=== PATIENT | female | born 1995 | race Hispanic/Latino ===

== ENCOUNTER 2017-09-20 15:49 | Observation (INO) | payer OTHER ==
[2017-09-20 16:06] VITALS: BMI 44.6
--- NOTE | 2017-09-20 16:11 | ED PDOC ---
Arrival/HPI <Ashley Toledo - Last Filed: 09/20/17 22:52> - General Historian: Patient <Ozzie Bui - Last Filed: 09/22/17 16:10> - General Chief Complaint: GI Problem Time Seen by Provider: 09/20/17 15:55 - History of Present Illness Narrative History of Present Illness (Text): 09/20/17 16:02 22 y/o female, no significant pmh, nkda, c/o nausea/vomiting/diarrhea and lower abdominal pain started this morning. Pt. stated that she went to sleep last night with epigastric pain which the pain radiating to periumbilical this morning, associated with couple episodes of non-bloody/nonbilious vomiting with the couple episodes of non-bloody diarrhea, no recent traveling, no recent antibiotic use, no rash, no dizziness, no numbness or tingling, no other medical or psychological complaints. (Ozzie Bui) Past Medical History - Provider Review Nursing Documentation Reviewed: Yes - Infectious Disease Hx of Infectious Diseases: None - Psychiatric Hx Anxiety: Yes Hx Substance Use: No - Surgical History Hx Tonsillectomy: Yes (& adenoids) - Anesthesia Hx Anesthesia: Yes Hx Anesthesia Reactions: No Hx Malignant Hyperthermia: No <Ozzie Bui - Last Filed: 09/22/17 16:10> Family/Social History - Physician Review Nursing Documentation Reviewed: Yes Family/Social History: Unknown Family HX Smoking Status: Never Smoked Hx Alcohol Use: No Hx Substance Use: No <Ozzie Bui - Last Filed: 09/22/17 16:10> Allergies/Home Meds <Ashley Toledo - Last Filed: 09/20/17 22:52> <Ozzie Bui - Last Filed: 09/22/17 16:10> Allergies/Adverse Reactions: Allergies No Known Allergies Allergy (Verified 09/20/17 15:53) Home Medications: Home Meds Medication Instructions Recorded Confirmed Norgestrel-Ethinyl Estradiol 1 tab PO DAILY 09/20/17 09/20/17 [Cryselle-28 Tablet] Review of Systems - Review of Systems Constitutional: Fatigue. absent: Fevers Eyes: absent: Vision Changes ENT: absent: Hearing Changes Respiratory: absent: SOB, Cough Cardiovascular: absent: Chest Pain Gastrointestinal: Abdominal Pain, Diarrhea, Nausea, Vomiting Musculoskeletal: absent: Arthralgias, Back Pain Skin: absent: Rash, Pruritis Neurological: absent: Headache Psychiatric: absent: Anxiety, Depression, Suicidal Ideation <Ozzie Bui Q - Last Filed: 09/22/17 16:10> Physical Exam Vital Signs Reviewed: Yes Temperature: Afebrile Blood Pressure: Normal Pulse: Tachycardic Respiratory Rate: Normal Appearance: Positive for: Well-Appearing, Non-Toxic, Comfortable Pain Distress: Mild Mental Status: Positive for: Alert and Oriented X 3 - Systems Exam Head: Present: Atraumatic, Normocephalic Pupils: Present: PERRL Extroacular Muscles: Present: EOMI Conjunctiva: Present: Normal Mouth: Present: Moist Mucous Membranes Neck: Present: Normal Range of Motion Respiratory/Chest: Present: Clear to Auscultation, Good Air Exchange. No: Respiratory Distress, Accessory Muscle Use Cardiovascular: Present: Regular Rate and Rhythm, Normal S1, S2. No: Murmurs Abdomen: Present: Tenderness (+periumbilical tenderness, negative calixto, negative mcburney), Normal Bowel Sounds. No: Distention, Peritoneal Signs, Rebound, Guarding Back: Present: Normal Inspection Upper Extremity: Present: Normal Inspection. No: Cyanosis, Edema Lower Extremity: Present: Normal Inspection. No: Edema Neurological: Present: GCS=15, Speech Normal, Motor Func Grossly Intact, Gait Normal, Memory Normal Skin: Present: Warm, Dry, Normal Color. No: Rashes Psychiatric: Present: Alert, Oriented x 3, Normal Insight, Normal Concentration <Ozzie Bui Q - Last Filed: 09/22/17 16:10> Vital Signs Temp Pulse Resp BP Pulse Ox 09/21/17 00:05 99.2 F 98 H 17 108/58 L 99 09/20/17 23:35 99.2 F 98 H 17 108/58 L 99 09/20/17 22:34 99.8 F H 120 H 112/73 09/20/17 22:19 99.8 F H 115 H 17 112/73 100 09/20/17 20:15 140 H 115/82 09/20/17 18:45 97.5 F L 129 H 18 118/82 100 09/20/17 18:03 113 H 18 135/70 96 09/20/17 15:55 98.9 F 125 H 18 143/81 97 Medical Decision Making Re-evaluation Time: 22:49 Reassessment Condition: Re-examined, Improving,but remains with symptoms - Lab Interpretations I have reviewed the lab results: Yes Interpretation: No clinic. lab abnormalty <Ashley Toledo P - Last Filed: 09/20/17 22:52> - RAD Interpretation Clinical Rn: Radiologist - EKG Interpretation Interpreted by ED Physician: Yes Type: 12 lead EKG Comparison: No previous EKG avail. <Ozzie Bui Q - Last Filed: 09/22/17 16:10> ED Course and Treatment: 09/20/17 22:[address] Salgado regarding patient symptoms. I reviewed lab results, CT scan result, V/Q scan result, VS. I told Dr. Salgado that Dr. Thompson has sen pt. Patient mother request her to be admitting physician. Negative CT and V/Q scan. Dr. Salgado agreed with plan for observation, Telemetry (Ashley Toledo P) 09/20/17 16:15 -labs/ua/rapid flu -ct abdomen and pelvis -IVF/pepcid/reglan -observe and reassess -Discharge home with pepcid, zofran, BRAT diet stay hydrated, avoid dairy product for 2-3 days until symptoms improved, return to the ER for any new or worsening signs or symptoms. 09/20/17 18:36 -Urine hcg is negative -Labs show no acute findings -UA show no UTI -Rapid flu show negative. -CT abdomen and pelvis show: Unremarkable contrast enhanced CT of the abdomen and pelvis. No definite suspicious bowel findings, lack of oral contrast limits evaluation of the small bowel more so than large bowel. -Pt.'s symptoms resolved, feeling completely relief, clinical suspicious for influenza is low. -Pt. remains tachycardia, on control, WELLS criteria for PE is 4.5, received IV contrast previously, will proceed with V/Q scan -EKG ordered as well. 09/20/17 18:54 -EKG: Sinus Tachycardia @ 125 BPM, no ST elevation or depression, T wave inversion on lead III and aVF, no previous ekg available for comparison. -VBG shock panel/thyroid panel and cardiac enzyme ordered. 09/20/17 19:08 -Pt. and patient family request DR. Moreno to be consulted, came to the ER and evaluated the patient, orthostatic performed by Dr. Fuller and there is no tilt or orthostatic hypotension. Dr. Fuller evaluated the patient. -As per Dr. Fuller, pt. is clear from cardiac stand point with no further troponin indicated, agreed to rule out PE cause vs. dehydration vs. thyroid. -Propranolol and echocardiogram ordered by Dr. Fuller. 09/20/17 20:29 -Thyroid profile: normal TSH and normal T4 -Troponin is negative -CK is negative -Drug screen is negative -V/Q scan is pending -VBG is pending -Chest xray show no active pulmonary disease -Cause of this tachycardia and not respond to the IVF with afebrile are not clear, will need further evaluation if all ER test is negative and likely need tele admit -Case endorsed to the incoming PA Ashley Toledo for further observation and dispo, discussed labs/radiology results. (Ozzie Bui) - Lab Interpretations Lab Results: 09/20/17 16:44 09/20/17 16:44 Lab Results 09/20/17 22:15: pO2 36, VBG pH 7.38, VBG pCO2 47.0, VBG HCO3 27.8, VBG Total CO2 29.2 H, VBG O2 Sat (Calc) 77.6 H, VBG Base Excess 2.0, VBG Potassium 4.3, Glucose 101, Lactate 1.6, FiO2 21.0, Sodium 135.0, Chloride 102.0, Venous Blood Potassium 4.3 09/20/17 18:57: POC Glucose (mg/dL) 75 09/20/17 17:50: Urine Opiates Screen Negative, Urine Methadone Screen Negative, Ur Barbiturates Screen Negative, Ur Phencyclidine Scrn Negative, Ur Amphetamines Screen Negative, U Benzodiazepines Scrn Negative, U Oth Cocaine Metabols Negative, U Cannabinoids Screen Negative 09/20/17 16:44: Free T4 0.91, TSH 3rd Generation 0.62 09/20/17 16:44: Lactate Dehydrogenase 390, Total Creatine Kinase 70, Troponin I < 0.01 09/20/17 16:44: D-Dimer, Quantitative 290 H 09/20/17 16:44: WBC 7.9, RBC 4.88, Hgb 15.5, Hct 44.6, MCV 91.4, MCH 31.8, MCHC 34.8, RDW 12.3, Plt Count 216, MPV 10.0, Gran % 90.6 H, Lymph % (Auto) 3.9 L, [place] % (Auto) 5.3, Eos % (Auto) 0.1 L, Baso % (Auto) 0.1, Gran # 7.15 H, Lymph # (Auto) 0.3 L, [place] # (Auto) 0.4, Eos # (Auto) 0.0, Baso # (Auto) 0.01, Neutrophils % (Manual) 92 H, Band Neutrophils % 3 H, Lymphocytes % (Manual) 2 L , Atypical Lymphs % 2 H, Monocytes % (Manual) 1, Platelet Evaluation Normal 09/20/17 16:44: Sodium 138, Potassium 4.2, Chloride 102, Carbon Dioxide 24, Anion Gap 17, BUN 12, Creatinine 0.7, Est GFR ( Amer) > 60, Est GFR (Non- Af Amer) > 60, Random Glucose 101, Calcium 10.0, Magnesium 1.8, Total Bilirubin 0.8, AST 18, ALT 31, Alkaline Phosphatase 53, Total Protein 7.4, Albumin 4.4, Globulin 3.0, Albumin/Globulin Ratio 1.5 09/20/17 16:33: Influenza Typ A,B (EIA) Negative for flu a/b 09/20/17 16:12: Urine Color Yellow, Urine Appearance Sl cloudy, Urine pH 7.0, Ur Specific [place] 1.025, Urine Protein Negative, Urine Glucose (UA) Negative, Urine Ketones Trace H, Urine Blood Moderate H, Urine Nitrate Negative, Urine Bilirubin Negative, Urine Urobilinogen 0.2, Ur Leukocyte Esterase Negative, Urine RBC 5 - 10, Urine WBC 2 - 5, Ur Epithelial Cells Many, Urine Bacteria Many - RAD Interpretation Narrative RAD Interpretations (Text): 09/20/17 22:17 EXAM: NM Lung Perfusion and Ventilation Scan CLINICAL HISTORY: 22 years old, female; Signs and symptoms; Other: Tachycardia; Additional info: Tachycardia, R/O pe TECHNIQUE: Nuclear Medicine ventilation and perfusion images of the lungs were obtained in multiple projections following radiopharmaceutical inhalation/injection. COMPARISON: No relevant prior studies available. FINDINGS: Ventilation: Heterogeneous with clumpy accumulation of tracer in the proximal airways likely artifactual or related to technique. Perfusion: Homogeneous perfusion without segmental defects. IMPRESSION: No findings to suggest pulmonary embolism. 09/20/17 22:52 Chest X-rays: NAD (Kay Toledopeter P) Radiology Orders: 09/20/17 16:12 ABD & PELVIS IV CONTRAST ONLY [CT] Stat 09/20/17 18:31 LUNG PERF & VENT SCAN [NM] Stat 09/20/17 18:52 CHEST TWO VIEWS (PA/LAT) [RAD] Stat LOWER THORAX: Unremarkable. LIVER: Unremarkable. No gross lesion or ductal dilatation. GALLBLADDER AND BILE DUCTS: Unremarkable. PANCREAS: Unremarkable. No gross lesion or ductal dilatation. SPLEEN: Unremarkable. ADRENALS: Unremarkable. No mass. KIDNEYS AND URETERS: Unremarkable. No hydronephrosis. No solid mass. VASCULATURE: Unremarkable. No aortic aneurysm. BOWEL: Unremarkable. No obstruction. No gross mural thickening. APPENDIX: Normal appendix. PERITONEUM: Unremarkable. No free fluid. No free air. LYMPH NODES: Unremarkable. No enlarged lymph nodes. BLADDER: Unremarkable. REPRODUCTIVE: Unremarkable. BONES: No acute fracture. OTHER FINDINGS: None. IMPRESSION: Unremarkable contrast enhanced CT of the abdomen and pelvis. No definite suspicious bowel findings, lack of oral contrast limits evaluation of the small bowel more so than large bowel. (Ozzie Bui) - EKG Interpretation EKG Interpretation (Text): 09/20/17 18:54 -EKG: Sinus Tachycardia @ 125 BPM, no ST elevation or depression, T wave inversion on lead III and aVF, no previous ekg available for comparison. (Ozzie Bui) - Medication Orders Current Medication Orders: Discontinued Medications Acetaminophen (Tylenol 325mg Tab) 975 mg PO STAT STA Stop: 09/20/17 22:19 Last Admin: 09/20/17 22:34 Dose: 975 mg MAR Pain/Vitals Document 09/20/17 22:34 IT (Rec: 09/20/17 22:34 IT [id number]) Vitals Temperature (97.6 F-99.6 F) 99.8 F Temperature Source Oral Acetaminophen (Tylenol 325mg Tab) 650 mg PO Q6H PRN PRN Reason: Fever >100.4 F Last Admin: 09/21/17 04:38 Dose: 650 mg MAR Pain/Vitals Document 09/21/17 04:38 STM (Rec: 09/21/17 04:39 STM [facility] [id number]) Vitals Temperature (97.6 F-99.6 F) 101.7 F Temperature Source Oral Re-Assess: MAR Pain/Vitals Document 09/21/17 05:38 STM (Rec: 09/21/17 06:56 STM [id number]) Vitals Temperature (97.6 F-99.6 F) 98.9 F Temperature Source Oral Famotidine (Pepcid) 20 mg IVP STAT STA Stop: 09/20/17 16:13 Last Admin: 09/20/17 16:59 Dose: 20 mg IVP Administration Document 09/20/17 16:59 OCS (Rec: 09/20/17 17:00 OCS [id number]) Charges for Administration # of IVP Administrations 1 Sodium Chloride (Sodium Chloride 0.9%) 1,000 mls @ 999 mls/hr IV .Q1H1M STA Stop: 09/20/17 17:12 Last Admin: 09/20/17 17:00 Dose: 999 mls/hr eMAR Start Stop Document 09/20/17 17:00 OCS (Rec: 09/20/17 17:00 OCS [id number]) Intravenous Solution Start Date 09/20/17 Start Time 17:00 End Date 09/20/17 End time 18:01 Total Infusion Time 61 Sodium Chloride (Sodium Chloride 0.9%) 1,000 mls @ 250 mls/hr IV .Q4H JOAN Last Admin: 09/20/17 19:30 Dose: 250 mls/hr eMAR Start Stop Document 09/20/17 19:30 IT (Rec: 09/20/17 22:34 IT [id number]) Intravenous Solution Start Date 09/20/17 Start Time 19:30 Sodium Chloride (Sodium Chloride 0.9%) 1,000 mls @ 500 mls/hr IV .Q2H JOAN Last Admin: 09/20/17 18:50 Dose: 500 mls/hr eMAR Start Stop Document 09/20/17 18:50 OCS (Rec: 09/20/17 18:50 OCS [id number]) Intravenous Solution Start Date 09/20/17 Start Time 18:50 End Date 09/20/17 End time 20:50 Total Infusion Time 120 Sodium Chloride (Sodium Chloride 0.9%) 1,000 mls @ 100 mls/hr IV .Q10H JOAN Last Admin: 09/21/17 13:18 Dose: Metoclopramide HCl (Reglan) 10 mg IVP STAT STA Stop: 09/20/17 16:13 Last Admin: 09/20/17 17:00 Dose: 10 mg IVP Administration Document 09/20/17 17:00 OCS (Rec: 09/20/17 17:00 OCS [id number]) Charges for Administration # of IVP Administrations 1 Ondansetron HCl (Zofran Inj) 4 mg IVP Q6H PRN PRN Reason: Nausea/Vomiting Last Admin: 09/21/17 04:39 Dose: 4 mg IVP Administration Document 09/21/17 04:39 STM (Rec: 09/21/17 04:39 STM [id number]) Charges for Administration # of IVP Administrations 1 Propranolol HCl (Inderal) 10 mg PO STAT STA Stop: 09/20/17 19:13 Last Admin: 09/20/17 20:15 Dose: 10 mg MAR Pulse and Blood Pressure Document 09/20/17 20:15 IT (Rec: 09/20/17 20:15 IT [id number]) Pulse Pulse Rate (60-90) 140 Blood Pressure Blood Pressure (100/60-150/90) 115/82 Propranolol HCl (Inderal) 10 mg PO TID JOAN Last Admin: 09/21/17 13:13 Dose: 10 mg MAR Pulse and Blood Pressure Document 09/21/17 13:13 KL (Rec: 09/21/17 13:14 KL [id number]) Pulse Pulse Rate (60-90) 73 Blood Pressure Blood Pressure (100/60-150/90) 102/56 Propranolol HCl (Inderal) 10 mg PO STAT STA Stop: 09/20/17 22:26 Last Admin: 09/20/17 22:34 Dose: 10 mg MAR Pulse and Blood Pressure Document 09/20/17 22:34 IT (Rec: 09/20/17 22:34 IT [id number]) Pulse Pulse Rate (60-90) 120 Blood Pressure Blood Pressure (100/60-150/90) 112/73 - PA / [employer] / Resident Statement MD/DO has reviewed & agrees with the documentation as recorded. <Ozzie Bui Q - Last Filed: 09/22/17 16:10> Disposition/Present on Arrival - Disposition Patient Plan: Admission <Ashley Toledo P - Last Filed: 09/20/17 22:52> - Present on Arrival Any Indicators Present on Arrival: No History of DVT/PE: No History of Uncontrolled Diabetes: No Urinary Catheter: No History of Decub. Ulcer: No History Surgical Site Infection Following: None - Disposition Have Diagnosis and Disposition been Completed?: Yes Disposition Time: 20:31 Patient Plan: Admission <Ozzie Bui - Last Filed: 09/22/17 16:10> - Disposition Diagnosis: Gastroenteritis, Tachyarrhythmia, Abnormal EKG Disposition: HOSPITALIZED Condition: STABLE
[2017-09-20] MEDS ORDERED: Sodium Chloride 0.9% 1,000 ML IV STA (16:12)
[2017-09-20] MEDS ORDERED: Sodium Chloride 0.9% 1,000 ML IV SCH ×2 (17:00→18:15)
[2017-09-20 17:05] LABS: BASO # 0.01 K/mm3 (0.0-2.0); BASO % 0.1 % (0.0-3.0); EOS % 0.1 % (1.5-5.0); GRAN # 7.15 (1.4-6.5); GRAN % 90.6 % (50.0-68.0); HEMOGLOBIN 15.5 g/dL (12.0-16.0); LYMPH # 0.3 (1.2-3.4); LYMPH % 3.9 % (22.0-35.0); MEAN CELL VOLUME 91.4 fl (80.0-105.0); MEAN CORPUSCULAR HEMOGLOBIN 31.8 pg (25.0-35.0); MEAN CORPUSCULAR HGB CONC 34.8 g/dl (31.0-37.0); MONO # 0.4 (0.1-0.6); MONO % 5.3 % (1.0-6.0); PLATELET COUNT 216 10^3/uL (120.0-450.0); RBC 4.88 10^6/uL (3.5-6.1); RED CELL DISTRIBUTION WIDTH 12.3 % (11.5-14.5); WHITE BLOOD COUNT 7.9 10^3/ul (4.5-11.0)
[2017-09-20] MEDS ORDERED: Iohexol 350 MG/100 ML VIAL ONE (17:06)
[2017-09-20 17:10] LABS: ALB/GLOB RATIO 1.5 (1.1-1.8); ALBUMIN 4.4 g/dL (3.0-4.8); ALT/SGPT 31 U/L (7-56); AST/SGOT 18 U/L (14-36); BLOOD UREA NITROGEN 12 mg/dL (7-21); GFR AFRICAN-AMERICAN > 60; GFR NON-AFRICAN AMERICAN > 60; MAGNESIUM 1.8 mg/dL (1.7-2.2)
--- NOTE | 2017-09-20 17:45 | CT ---
PROCEDURE: CT Abdomen and Pelvis with contrast HISTORY: periumbilical pain/diarrhea/vomiting COMPARISON: None. TECHNIQUE: Contrast dose: Omnipaque 350, 100 cc Radiation dose: Total exam DLP = 1230.50 mGy-cm. This CT exam was performed using one or more of the following dose reduction techniques: Automated exposure control, adjustment of the mA and/or kV according to patient size, and/or use of iterative reconstruction technique. FINDINGS: LOWER THORAX: Unremarkable. LIVER: Unremarkable. No gross lesion or ductal dilatation. GALLBLADDER AND BILE DUCTS: Unremarkable. PANCREAS: Unremarkable. No gross lesion or ductal dilatation. SPLEEN: Unremarkable. ADRENALS: Unremarkable. No mass. KIDNEYS AND URETERS: Unremarkable. No hydronephrosis. No solid mass. VASCULATURE: Unremarkable. No aortic aneurysm. BOWEL: Unremarkable. No obstruction. No gross mural thickening. APPENDIX: Normal appendix. PERITONEUM: Unremarkable. No free fluid. No free air. LYMPH NODES: Unremarkable. No enlarged lymph nodes. BLADDER: Unremarkable. REPRODUCTIVE: Unremarkable. BONES: No acute fracture. OTHER FINDINGS: None. IMPRESSION: Unremarkable contrast enhanced CT of the abdomen and pelvis. No definite suspicious bowel findings, lack of oral contrast limits evaluation of the small bowel more so than large bowel. Should symptoms persist or worsen then follow-up CT with oral and intravenous contrast is advised.
[2017-09-20 17:58] LABS: ATYPICAL LYMPHOCYTE 2 % (0.0-0.0); BAND 3 % (0-2); LYMPHOCYTE 2 % (22.0-35.0); MONOCYTE 1 % (1.0-6.0); NEUTROPHIL 92 % (50.0-70.0); PLATELET ESTIMATE NORMAL (NORMAL)
[2017-09-20 18:01] LABS: URINE BILIRUBIN NEGATIVE (NEGATIVE); URINE BLOOD MODERATE (NEGATIVE); URINE GLUCOSE (UA) NEGATIVE (NEGATIVE); URINE LEUKOCYTE ESTERASE NEGATIVE Leu/uL (NEGATIVE); URINE NITRATE NEGATIVE (NEGATIVE); URINE PROTEIN NEGATIVE mg/dL (<30 mg/dL); URINE UROBILINOGEN 0.2 E.U./dL (<1 E.U./dL)
[2017-09-20 18:02] LABS: URINE APPEARANCE SL CLOUDY (CLEAR); URINE COLOR YELLOW (YELLOW)
[2017-09-20 18:08] LABS: URINE BACTERIA MANY (NEG); URINE EPITHELIAL CELLS MANY /hpf (0-5)
[2017-09-20 19:27] LABS: TROPONIN I < 0.01 ng/mL
[2017-09-20 19:31] LABS: FREE T4 0.91 ng/dL (0.78-2.19)
[2017-09-20 20:32] LABS: BARBITURATES, UR NEGATIVE (NEGATIVE); BENZODIAZEPINES, UR NEGATIVE (NEGATIVE); OPIATES, UR NEGATIVE (NEGATIVE); PHENCYCLIDINE, UR NEGATIVE (NEGATIVE)
[2017-09-20 22:22] LABS: VENOUS BLOOD GAS PO2 36 mm/Hg (30-55); VENOUS BLOOD PH 7.38 (7.32-7.43)
[2017-09-21 00:42] VITALS: RESP 18
[2017-09-21] MEDS: Sodium Chloride 0.9% 1,000 ML IV SCH ×3 (00:43→13:18)
--- NOTE | 2017-09-21 01:13 | CON ---
DATE: 09/20/2017 REASON FOR CONSULTATION: Sinus tachycardia, unexplained. BRIEF CLINICAL HISTORY: This is a 22-year-old female with no significant past medical history, came in with nausea multiple times and vomited once and diarrhea 5 times, came in with lower abdominal pain. Initially, patient was admitted with lower abdominal pain to rule out appendicitis but found to be in significant tachycardia, heart rate 120 to 130. Denies any chest pain. Denies any shortness of breath. Denies any palpitation. PAST MEDICAL HISTORY: Nothing significant. CURRENT MEDICATIONS: Patient is taking control pills estrogen progesterone combination, Zofran 4 mg q.8 p.r.n. and Pepcid. ALLERGIES: NO KNOWN DRUG ALLERGIES. SOCIAL HISTORY: Denies smoking. Denies any history of alcohol abuse. REVIEW OF SYSTEMS: As per HPI. PHYSICAL EXAMINATION: VITAL SIGNS: Temperature afebrile, heart rate 129, blood pressure 118/82. HEENT: PERRLA. Extraocular muscles intact. NECK: Supple. No carotid bruits or thyromegaly. CHEST: Clear to auscultation. HEART: S1, S2, regular. ABDOMEN: Soft. Mild tenderness in lower abdomen. LABORATORY DATA: WBC 7.9, hemoglobin , hematocrit 44.6, platelets count 216. Chemistry shows sodium 138, potassium 4.2, chloride 102, carbon dioxide 24, anion gap of 17, BUN 12, and creatinine 0.7. D-dimer 290. EKG shows sinus tachycardia, no acute ST-T changes noted. IMPRESSION: Sinus tachycardia, unexplained. Orthostatic was checked. On lying blood pressure 120/68, on standing blood pressure 129/60. Heart rate lying was 131, on standing went to be 136. No significant orthostatic changes noted. Maybe the patient is early volume depleted, but still patient is tachycardic. D-dimer positive and patient is also on estrogen progesterone combination control pills, rule out pulmonary embolism. RECOMMENDATIONS: Continue IV fluid, V/Q scan to rule out PE. Since the patient had dye load of abdomen and pelvis to rule out appendicitis was done, so suggested V/Q scan. We will start low dose of propranolol. Further recommendations depending upon V/Q findings. We will get echo if the patent get admitted tomorrow to rule out any structural heart disease. Thank you for providing us the opportunity in taking care of the patient Jing Lugo. We will follow with you. Jeanne Fuller MD
[2017-09-21 06:56] VITALS: TEMP 98.9; O2SAT 97
[2017-09-21 07:19] LABS: BASO # 0.01 K/mm3 (0.0-2.0); BASO % 0.2 % (0.0-3.0); GRAN # 4.81 (1.4-6.5); GRAN % 83.6 % (50.0-68.0); HEMOGLOBIN 14.2 g/dL (12.0-16.0); LYMPH # 0.5 (1.2-3.4); LYMPH % 9.2 % (22.0-35.0); MEAN CELL VOLUME 91.8 fl (80.0-105.0); MEAN CORPUSCULAR HEMOGLOBIN 31.5 pg (25.0-35.0); MEAN CORPUSCULAR HGB CONC 34.3 g/dl (31.0-37.0); MEAN PLATELET VOLUME 10.3 fl (7.0-11.0); MONO # 0.4 (0.1-0.6); RBC 4.51 10^6/uL (3.5-6.1); RED CELL DISTRIBUTION WIDTH 12.4 % (11.5-14.5); WHITE BLOOD COUNT 5.8 10^3/ul (4.5-11.0)
[2017-09-21 08:19] LABS: ALB/GLOB RATIO 1.3 (1.1-1.8); ALBUMIN 3.6 g/dL (3.0-4.8); ALT/SGPT 21 U/L (7-56); AST/SGOT 18 U/L (14-36); BLOOD UREA NITROGEN 7 mg/dL (7-21); CALCIUM 9.4 mg/dL (8.4-10.5); GFR AFRICAN-AMERICAN > 60; GFR NON-AFRICAN AMERICAN > 60
[2017-09-21 13:14] VITALS: BP 102/56
[2017-09-21 15:29] VITALS: PULSE 90
--- NOTE | 2017-09-21 19:13 | CARD ---
APPROVED REPORT EKG Measurement Heart [id number] <Conclusion> Sinus tachycardia T wave abnormality, consider inferior ischemia Abnormal ECG
--- NOTE | 2017-09-21 22:26 | HP ---
HISTORY OF PRESENT ILLNESS: The patient is 22 years old, states she was on [employer], but previous night she went with her family, ordered burger and Vincentian fries. Yesterday morning, she was having some abdominal discomfort starting from epigastric leading to periumbilical area. She was vomiting. She had couple of episodes of diarrhea and when she came to emergency room, she was found to be tachycardic. Also she was admitted for dehydration, IV fluids and monitoring of her tachycardia. Spiked fever of 101 last night. Had episode of nausea this morning, but responded to Zofran. PAST MEDICAL HISTORY: She has no significant past medical history. ALLERGIES: SHE IS NOT ALLERGIC TO ANY MEDICATIONS. MEDICATIONS: At home, she is on control pills only. SOCIAL HISTORY: Denies smoking or alcohol use. 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 REVIEW OF SYSTEMS: She has some epigastric discomfort. PHYSICAL EXAMINATION" GENERAL: She is awake, alert, oriented, communicative. VITAL SIGNS: She is afebrile, pulse 98, respirations 18, blood pressure 113/70. HEART: S1 and S2 audible. LUNGS: Bilateral good airflow. No rhonchi or crackles. ABDOMEN: Soft, obese, nontender. No rebound, no guarding. NEUROLOGICAL: She is awake, alert, oriented, communicative. LABORATORY DATA: WBC is 5.8, hemoglobin 14, hematocrit 41, platelet of 215. Chemistry, sodium 139, potassium 3.6, chloride 104, CO2 of 23, BUN 7, creatinine 0.6, blood sugar of 107. Flu test is negative. Echocardiogram is pending. She has x-ray chest done negative. V/Q scan is unremarkable and CT scan of the abdomen and pelvis is negative. ASSESSMENT AND PLAN: 1. Probably viral syndrome, tachycardia could be because of underlying infection. 2. Obesity. PLAN: We will advance her diet. The patient is advised to drink plenty of fluids. She is given prescription of propranolol 10 mg three times a day p.r.n. If her tachycardia persists, she is going to need Holter monitor. She will follow up echocardiogram and she will follow up with Dr. Fuller as outpatient, so the patient is being discharged on propranolol 10 mg t.i.d. p.r.n. for pulse more than 90. Rigoberto Salgado MD [facility] # [id number]
--- NOTE | 2017-09-23 09:52 | NM ---
COMPARISON: No prior similar study available for comparison TECHNIQUE: 33 mCi technetium 99-m technetium 99 DTPA 3.1 MCI technetium 99-m MAA administered intravenously. FINDINGS: VENTILATION COMPONENT: Heterogeneous distribution of the radiotracer noted in both lungs PERFUSION COMPONENT: No evidence of segmental or subsegmental mismatching perfusion defect. IMPRESSION: Very lowprobability ventilation perfusion scan for pulmonary embolism. Preliminary report was submitted by virtual Radiology.
--- NOTE | 2017-09-23 12:57 | CARD ---
APPROVED REPORT EXAM: Two-dimensional and M-mode echocardiogram with Doppler and color Doppler. INDICATION TACHYCARDIA 2D DIMENSIONS Left Atrium (2D)3.7 (1.6-4.0cm)IVSd1.1 (0.7-1.1cm) LVDd4.7 (3.9-5.9cm)PWd1.1 (0.7-1.1cm) LVDs3.1 (2.5-4.0cm)FS (%) 34.0 % LVEF (%)62.9 (>50%) M-Mode DIMENSIONS Aortic Root2.50 (2.2-3.7cm)Aortic Cusp Exc.2.00 (1.5-2.0cm) Mitral Valve MV E Ylwlldfm851.0cm/sE/A ratio0.0 TDI E/Lateral E'0.0E/Medial E'0.0 Tricuspid Valve TR Peak Umqhukia586ls/sRAP [id number] Peak Gr.20mmHg [id number] LEFT VENTRICLE The left ventricle is normal size. There is normal left ventricular wall thickness. The left ventricular function is normal.EF-60-65% There is normal LV segmental wall motion. The left ventricular diastolic function is normal. No left ventricle thrombus noted on this study. There is no ventricular septal defect visualized. There is no left ventricular aneurysm. There is no mass noted in the left ventricle. RIGHT VENTRICLE The right ventricle is normal size. There is normal right ventricular wall thickness. The right ventricular systolic function is normal. ATRIA The left atrium size is normal. The right atrium size is normal. The interatrial septum is intact with no evidence for an atrial septal defect. AORTIC VALVE The aortic valve is normal in structure. No aortic regurgitation is present. There is no aortic valvular stenosis. There is no aortic valvular vegetation. MITRAL VALVE The mitral valve is normal in structure. Mitral regurgitation is trace. There is no mitral valve stenosis. There is no evidence of mitral valve prolapse. TRICUSPID VALVE The tricuspid valve is normal in structure. There is trace tricuspid regurgitation. There is no tricuspid valve stenosis. There is no tricuspid valve prolapse or vegetation. PULMONIC VALVE The pulmonary valve is normal in structure. There is no pulmonic valvular regurgitation. There is no pulmonic valvular stenosis. GREAT VESSELS The aortic root is normal in size. The ascending aorta is normal in size. The pulmonary artery is normal. The IVC is normal in size and collapses >50% with inspiration. PERICARDIAL EFFUSION There is no pleural effusion. There is no pericardial effusion. <Conclusion> Normal Chamber Size. EF-60-65%. Trace MR/TR RVSP-32 mmof Hg
== END 2017-09-21 16:24 | disposition home or self-care (01) ==
LOC: ED 15:49 → ERH 22:49 → 2RNO 09-21 00:47
PROVIDERS: ADMIT Internal Medicine; ATTEND Internal Medicine
DX: R00.0 Tachycardia, unspecified (principal); K52.9 Noninfective gastroenteritis and colitis, unspecified; E86.0 Dehydration; E66.9 Obesity, unspecified; Z68.41 Body mass index [BMI] 40.0-44.9, adult
CPT/HCPCS: 36415; 71046; 74177; 78582; 80053; 80324; 80345; 80346; 80349; 80353; 80358; 80361; 81001; 82550; 82803; 82948; 83615; 83735; 83992; 84439; 84443; 84484; 85025; 85378; 87804; 93005; 93306; 96361; 96374; 96375; 99285; G0378; J2405; J2765; J7040; Q9967

== ENCOUNTER 2018-10-30 18:40 | Outpatient (CLI) | payer OTHER | END 2018-10-30 18:41 | disposition home or self-care (01) | LOC: LAB 18:40 ==